=== PATIENT | female | born 1995 | race Caucasian/White ===

== ENCOUNTER 2017-02-19 09:42 | Inpatient (IN) | payer OTHER ==
[2017-02-19] VITALS (8 sets, daily range): BP systolic 95–128; BP diastolic 53–85; PULSE 53–64; RESP 16–20; TEMP 97.7–98; O2SAT 100
[2017-02-19] MEDS ORDERED: OXYTOCIN 10 UNIT/ML AMP ONE (10:14)
--- NOTE | 2017-02-19 10:50 | PD ---
HPI Chief Complaint contractions and ROM Date Seen: Feb 19, 2017 Time Seen: 10:47 Travel History International Travel<30 Days: No Contact w/Intl Traveler<30Days: No Known Affected Area: No History of Present Illness HPI 22-year-old who is at 39 weeks gestation comes a complaint of rupture membranes and contractions. Patient's noted here in triage to have repetitive variable decelerations down to the 60s with a baseline of 140. Patient states that she was breech in the clinic one week ago. Para: 1 : 2 History Past Medical History Medical History: Denies Significant Hx Obstetric History Obstetric History Spontaneous vaginal delivery 1 Past Surgical History Narrative Surgical Spine stimulator Cholecystectomy Tonsillectomy Family History Family History: Negative Social History Alcohol Use: No Tobacco Use: No Substance Abuse: No Review of Systems Except as stated in HPI: all other systems reviewed are Neg Physical Exam Narrative GENERAL: Well-nourished, well-developed patient. SKIN: Warm and dry. HEAD: Normocephalic and atraumatic. EYES: No scleral icterus. No injection or drainage. ENT: No nasal drainage noted. Mucous membranes pink. Airway patent. NECK: Supple, trachea midline. No JVD. CARDIOVASCULAR: Regular rate and rhythm without murmurs, gallops, or rubs. RESPIRATORY: Breath sounds equal bilaterally. No accessory muscle use. BREASTS: Bilateral exam showed no masses , no retractions, no nipple discharge. ABDOMEN/GI: Abdomen soft, non-tender, bowel sounds present, no rebound, no guarding Gravid to [-40] weeks size Fundal Height: [-] GENITOURINARY: External Genitalia: intact and normal in appearance BUS glands: [Normal-] Cervix: [-] Dilatation: [-Complete] Effacement: [-Complete] Station: [-0] Presentation: [-] Double footling breech with 1 foot and 1 leg in the vagina Membranes: [ruptured] Uterine Contractions: [-Every 3 minutes] FHT's: Category: [-2] Baseline: [-140] Reactive: [Moderate] Variability: [-] Decels: [-] Variable decelerations to 70 for 90 seconds at a time EXTREMITIES: No cyanosis or edema. BACK: Nontender without obvious deformity. No CVA tenderness. NEUROLOGICAL: Awake and alert. Motor and sensory grossly within normal limits. Five out of 5 muscle strength in all muscle groups. Normal speech. Data Data Vital Signs Reviewed: Yes Orders Oxytocin Inj (Pitocin Inj) (02/19/17 10:14) MDM Plan 22-year-old with a double footling breech presentation completely dilated , with a category 2 heart rate tracing and repetitive variable decelerations. Plan emergency section. Dr. Hylton is back in the OR present time I will take the patient back for her section she understands this as well as her spouse. Diagnosis Diagnosis: Primary Impression: 39 weeks gestation of Additional Impressions: Double footling breech presentation Rupture of membranes with clear amniotic fluid Variable heart rate decelerations, delivered Brittany Beauchamp MD Feb 19, 2017 10:50
[2017-02-19] MEDS ORDERED: LACTATED RINGER'S 1000 ML INJ 1,000 ML IV PRN (10:58)
[2017-02-19] MEDS ORDERED: LACTATED RINGER'S 1000 ML INJ 1,000 ML IV SCH ×2 (10:58→16:00)
--- NOTE | 2017-02-19 10:58 | PD.OB.DELI ---
Procedure Note Section Procedure Pre Op Diagnosis: (1) 39 weeks gestation of (2) Variable heart rate decelerations, delivered (3) Double footling breech presentation (4) Rupture of membranes with clear amniotic fluid Post Op Diagnosis: Post Op Diagnosis same Performed by Brittany Beauchamp Procedure: Primary Low Transverse Sec Indication for delivery: Nonreassuring heart tracing, malposition Informed consent obtained: For anesthesia, For procedure Confirmed correct: Patient, Procedure, Site Anesthesia: None (GETA) Urinary catheter: Inserted using sterile technique Sterile preparation: Duraprep (Unable to wait entire 3 mintues for drying due to emergency nature of precedure) Position: Supine Operative Features Skin Incision: Pfannenstiel Uterine Incision: Low transverse w/knife / blunt ext Membranes Ruptured: Previously Presentation: Breech Time of : 10:32 Delivery of infant: Umbilical cord (nuchal cord x 4 noted, ) Infant: Male One Minute : 6 Five Minute : 7 Weight: 3290gms Placenta delivered: Intact Medications: Antibiotics (2gms Ancef given intraop) Estimated blood loss: 500 Procedure tolerated: Well Maternal Condition: Stable Condition: Stable Brittany Beauchamp MD Feb 19, 2017 10:58
[2017-02-19] MEDS ORDERED: LIDOCAINE HCL 1% 50 ML VIAL INFIL PRN (11:00)
[2017-02-19] MEDS ORDERED: ONDANSETRON HCL 4 MG/2 ML VIAL IV PUSH PRN (11:00)
[2017-02-19] MEDS ORDERED: OXYTOCIN 30 UNITS-500ML PREMIX 500 ML IV ONE ×2 (11:00)
[2017-02-19] MEDS ORDERED: MINERAL OIL 10 ML VIAL TOPICAL PRN (11:00)
[2017-02-19] MEDS ORDERED: CITRIC ACID-SODIUM CITRATE LIQ 30 ML UDC PO SCH (11:00)
[2017-02-19] MEDS ORDERED: LIDOCAINE HCL 1% 50 ML VIAL I-DERMAL PRN (11:00)
[2017-02-19] MEDS ORDERED: SODIUM CHLORID 0.9% 500 ML INJ 500 ML IV PRN (11:00)
[2017-02-19] MEDS ORDERED: SIMETHICONE 80 MG CHEWABLE TAB PO PRN (11:00)
[2017-02-19] MEDS ORDERED: oxyCODONE/ACETAMINOPHEN 5 MG/325 MG TAB PO PRN (11:00)
[2017-02-19 11:09] LABS: BLOOD, URINE NEG (NEG); COMMENT (UR) CULT NOT INDICATED; CULTURE IF INDICATED CULT NOT INDICATED; GLUCOSE,URINE NEG (NEG); HYALINE CAST, URINE 1 /lpf (RARE); KETONE, URINE NEG (NEG); MUCUS URINE FEW /lpf (OCC); NITRITE,URINE NEG (NEG); PH, URINE 6.5 (5.0-8.5); SQUAMOUS EPITHELIAL CELL URINE 1 /hpf (0-5); URINE COLOR YELLOW (YELLW/STRAW)
[2017-02-19 11:09] LABS: BASOPHIL % 0.5 % (0.0-2.0); EOSINOPHIL # 0.1 TH/MM3 (0-0.4); EOSINOPHIL % 1.3 % (0.0-4.0); HEMO FLAGS DIFF FINAL; LYMPH % 23.7 % (9.0-44.0); LYMPHOCYTE # 2.1 TH/MM3 (1.0-4.8); MEAN CELL VOLUME 90.9 FL (80.0-100.0); MEAN CORPUSCULAR HEMOGLOBIN 30.8 PG (27.0-34.0); MEAN CORPUSCULAR HGB CONC 33.8 % (32.0-36.0); MONO % 6.3 % (0.0-8.0); NEUT % 68.2 % (16.0-70.0); PLATELET COUNT 139 TH/MM3 (150-450); RED BLOOD COUNT 3.85 MIL/MM3 (4.00-5.30); RED CELL DISTRIBUTION WIDTH 12.6 % (11.6-17.2); WHITE BLOOD COUNT 8.8 TH/MM3 (4.0-11.0)
[2017-02-19] MEDS ORDERED: HYDROmorphone HCL PF 2 MG/ML VIAL ONE (11:10)
[2017-02-19] MEDS ORDERED: diphenhydrAMINE HCL 25 MG CAP PO PRN (11:15)
[2017-02-19] MEDS ORDERED: NALOXONE HCL 0.4 MG/ML AMP IV PRN (11:15)
[2017-02-19] MEDS ORDERED: LACTATED RINGER'S 1000 ML INJ 1,000 ML IV ONE ×2 (11:16)
[2017-02-19] MEDS ORDERED: MIDAZOLAM HCL 2 MG/2 ML VIAL ONE (11:17)
[2017-02-19] MEDS ORDERED: fentaNYL CITRATE 250 MCG/5 ML AMP ONE (11:17)
[2017-02-19] MEDS ORDERED: SODIUM CHLOR 0.9% 1000 ML INJ 1,000 ML IV PRN (11:18)
[2017-02-19] MEDS ORDERED: ACETAMINOPHEN 1000 MG/100 ML VIAL IV ONE ×2 (11:25→14:45)
[2017-02-19] MEDS ORDERED: HYDROmorphone HCL PCA 6 MG/30 ML IV ONE (11:31)
[2017-02-19] MEDS: HYDROmorphone HCL PCA 6 MG/30 ML IV SCH ×3 (11:44→23:45)
[2017-02-19] MEDS ORDERED: KETOROLAC TROMETHAMINE 30 MG/ML (IVP) VIAL ONE (11:50)
[2017-02-19] MEDS ORDERED: OXYTOCIN 30 UNITS-500ML PREMIX 500 ML ONE (11:58)
[2017-02-19] MEDS: PCA - TOTAL MG DILAUDID DELIVERED PER SHIFT OTHER SCH (14:00)
[2017-02-19] MEDS ORDERED: KETOROLAC TROMETHAMINE 30 MG/ML (IVP) VIAL IM ONE (14:45)
[2017-02-19 18:43] LABS: RAPID PLASMA REAGIN SCREEN NON-REACTIVE (NON-REACTVE)
[2017-02-19] MEDS ORDERED: OXYTOCIN 30 UNITS-500ML PREMIX 500 ML IV PRN (21:00)
[2017-02-19] MEDS ORDERED: SODIUM CHLORIDE 0.9% FLUSH 10 ML FLUSH IV FLUSH SCH (21:00)
[2017-02-20] VITALS (7 sets, daily range): BP systolic 99–119; BP diastolic 60–68; PULSE 68–74; RESP 16–20; TEMP 97.8–98.8
--- NOTE | 2017-02-20 02:19 | HHI.OB ---
Subjective Post Operative Day: 1 Remarks Pt crying stating pain control is not adequate. Pt has not been and still not forthcoming about her drug use. She denied any drug use at her 2 visits during . Now states she was on oxycodone 10 alva TID, until she "found out I was " which was in third trimester, and "again at the end." Objective Vitals/I&O Vital Signs Date Time Temp Pulse Resp B/P Pulse Ox O2 Delivery O2 Flow Rate FiO2 02/20/17 00:30 98.6 68 18 111/64 02/19/17 23:45 20 02/19/17 20:00 97.8 60 20 118/64 02/19/17 17:58 18 02/19/17 14:00 18 02/19/17 13:50 64 16 128/81 02/19/17 13:50 98.0 02/19/17 12:26 97.7 02/19/17 12:15 123/83 02/19/17 12:15 61 16 100 02/19/17 12:05 59 16 128/79 02/19/17 12:05 100 02/19/17 11:49 16 02/19/17 11:49 57 18 128/85 100 02/19/17 11:44 18 02/19/17 11:20 53 18 100 02/19/17 11:19 95/53 Result Diagram: 02/19/17 1005 Objective Remarks GENERAL: Well-nourished, well-developed patient. CARDIOVASCULAR: Regular rate and rhythm without murmurs, gallops, or rubs. RESPIRATORY: Breath sounds equal bilaterally. No accessory muscle use. ABDOMEN/GI: Abdomen soft, non-tender, bowel sounds present. Incision:dressing Clean, dry and intact. Fundus: Firm, non-tender at umbilicus. GENITOURINARY: Light to moderate bleeding. EXTREMITIES: No cyanosis or edema, non-tender, without signs of DVT. Medications and IVs Current Medications Medications (Trade) Dose Ordered Sig/Juma Route Start Time Stop Time Status Last Admin Lactated Ringer's 1,000 ml @ 125 mls/hr Q8H IV 02/19/17 10:58 Lactated Ringer's 1,000 ml @ 3,000 mls/hr Q20M PRN IV 02/19/17 10:58 (NS 1000 ml Inj) 1,000 ml @ 100 mls/hr Q10H PRN IV 02/19/17 11:18 (fentaNYL INJ) 50 mcg Q1H PRN IV PUSH 02/19/17 11:00 (fentaNYL INJ) 100 mcg Q1H PRN IV PUSH 02/19/17 11:00 Mineral Oil 10 ml 10 ml UNSCH PRN TOPICAL 02/19/17 11:00 (Lr 1000 ml Inj) 1,000 ml @ 100 mls/hr Q10H IV 02/19/17 16:00 02/20/17 11:59 (NS Flush) 2 ml BID IV FLUSH 02/19/17 21:00 (NS Flush) 2 ml UNSCH PRN IV FLUSH 02/19/17 11:00 (Mylicon Chew) 80 mg QID PRN PO 02/19/17 11:00 (Percocet 5-325 Mg) 1 tab Q4H PRN PO 02/19/17 11:00 (Percocet 5-325 Mg) 2 tab Q4H PRN PO 02/19/17 11:00 (Yesika-Colace) 2 tab Q12H PRN PO 02/19/17 11:00 (M-M-R Ii Inj) 0.5 ml ONCE ONCE SQ 02/20/17 16:00 02/20/17 16:01 (Boostrix Inj) 0.5 ml ONCE ONCE IM 02/20/17 16:00 02/20/17 16:01 (Zofran Inj) 4 mg Q6H PRN IV PUSH 02/19/17 11:00 (Narcan Inj) 0.4 mg UNSCH PRN IV 02/19/17 11:15 (Benadryl) 25 mg Q6H PRN PO 02/19/17 11:15 (Dilaudid DRAWING FRAME TENDER Inj) 6 mg UNSCH IV 02/19/17 11:15 02/19/17 23:45 DRAWING FRAME TENDER Dosage Infused (Pha) 1 Q8HR OTHER 02/19/17 14:00 02/19/17 14:00 Assessment/Plan Problem List: (1) delivery delivered (2) Limited care Assessment and Plan POD 1 s.p stat cd under general for footling breech uds + opiates and MJ. case management consulted and DCF involved. Will increase percocet to 7.5mg bid and give toradol q 24 hours scheduled. Will hold ibuprofen at this time. Anette Hylton MD Feb 20, 2017 02:18
[2017-02-20] MEDS: HYDROmorphone HCL PCA 6 MG/30 ML IV SCH (03:08)
[2017-02-20 03:18] LABS: AMPHETAMINE, URINE NEG (NEG); BARBITURATES, URINE NEG (NEG); COCAINE, URINE NEG (NEG)
[2017-02-20] MEDS: oxyCODONE/ACETAMINOPHEN 5 MG/325 MG TAB PO PRN ×3 (03:58→12:25)
[2017-02-20] MEDS: IBUPROFEN 600 MG TAB PO PRN ×2 (04:05→10:28)
[2017-02-20 05:58] LABS: AUTOMATED NEUTROPHIL # 10.3 TH/MM3 (1.8-7.7); BASOPHIL % 0.1 % (0.0-2.0); EOSINOPHIL % 0.3 % (0.0-4.0); HEMATOCRIT 26.3 % (35.0-46.0); HEMO FLAGS DIFF FINAL; LYMPH % 13.5 % (9.0-44.0); LYMPHOCYTE # 1.7 TH/MM3 (1.0-4.8); MEAN CELL VOLUME 91.5 FL (80.0-100.0); MEAN CORPUSCULAR HEMOGLOBIN 31.4 PG (27.0-34.0); MEAN CORPUSCULAR HGB CONC 34.3 % (32.0-36.0); MONO % 5.7 % (0.0-8.0); NEUT % 80.4 % (16.0-70.0); PLATELET COUNT 105 TH/MM3 (150-450); RED BLOOD COUNT 2.88 MIL/MM3 (4.00-5.30); RED CELL DISTRIBUTION WIDTH 12.6 % (11.6-17.2); WHITE BLOOD COUNT 12.8 TH/MM3 (4.0-11.0)
[2017-02-20] MEDS: PCA - TOTAL MG DILAUDID DELIVERED PER SHIFT OTHER SCH (07:15)
[2017-02-20] MEDS: DOCUSATE SODIUM 50 MG/SENNA 8.6 MG TAB PO PRN (08:32)
[2017-02-20] MEDS ORDERED: oxyCODONE/ACETAMINOPHEN 7.5 MG/325 MG TAB PO PRN (13:15)
[2017-02-20] MEDS ORDERED: DIPHTH/TETANUS/ACEL PERTUSSIS (BOOSTER) 0.5 ML VIAL/PFS IM ONE (16:00)
[2017-02-20] MEDS ORDERED: MEASLES, MUMPS, RUBELLA VACCINE 0.5 ML VIAL SQ ONE (16:00)
[2017-02-20] MEDS: SODIUM CHLORIDE 0.9% FLUSH 10 ML FLUSH IV FLUSH PRN ×2 (16:30→22:35)
[2017-02-20] MEDS: oxyCODONE/ACETAMINOPHEN 7.5 MG/325 MG TAB PO PRN ×2 (16:30→20:30)
[2017-02-20] MEDS ORDERED: KETOROLAC TROMETHAMINE 30 MG/ML (IVP) VIAL IV PUSH SCH ×2 (18:00→22:00)
[2017-02-21] MEDS: oxyCODONE/ACETAMINOPHEN 7.5 MG/325 MG TAB PO PRN ×4 (00:25→13:15)
[2017-02-21] MEDS: KETOROLAC TROMETHAMINE 30 MG/ML (IVP) VIAL IM SCH ×3 (04:50→11:00)
[2017-02-21 08:30] VITALS: BP 101/61; PULSE 67; RESP 16; TEMP 98.8
[2017-02-21] MEDS: IBUPROFEN 600 MG TAB PO PRN (08:36)
[2017-02-21] MEDS: DOCUSATE SODIUM 50 MG/SENNA 8.6 MG TAB PO PRN (08:36)
--- NOTE | 2017-02-21 11:13 | HHI.OB ---
Subjective Post Operative Day: 2 Remarks pain improved, voiding, + flatus. Desires to be d/c. Case management has already spoken with her. Baby in nicu for GUNJAN. She is pumping. Objective Vitals/I&O Vital Signs Date Time Temp Pulse Resp B/P Pulse Ox O2 Delivery O2 Flow Rate FiO2 02/21/17 08:30 98.8 67 16 101/61 02/20/17 20:30 119/68 02/20/17 20:30 98.8 71 16 02/20/17 16:30 18 02/20/17 14:55 18 02/20/17 12:25 20 Result Diagram: 02/20/17 0525 Objective Remarks GENERAL: Well-nourished, well-developed patient. CARDIOVASCULAR: Regular rate and rhythm without murmurs, gallops, or rubs. RESPIRATORY: Breath sounds equal bilaterally. No accessory muscle use. ABDOMEN/GI: Abdomen soft, non-tender, bowel sounds present. Incision Clean, dry and intact. Fundus: Firm, non-tender at umbilicus. GENITOURINARY: Light to moderate bleeding. EXTREMITIES: No cyanosis or edema, non-tender, without signs of DVT. Medications and IVs Current Medications Medications (Trade) Dose Ordered Sig/Juma Route Start Time Stop Time Status Last Admin (Lr 1000 ml Inj) 1,000 ml @ 125 mls/hr Q8H IV 02/19/17 10:58 02/20/17 03:04 (Muri-Lube Oil) 10 ml UNSCH PRN TOPICAL 02/19/17 11:00 (NS Flush) 2 ml UNSCH PRN IV FLUSH 02/19/17 11:00 02/20/17 22:35 (Mylicon Chew) 80 mg QID PRN PO 02/19/17 11:00 (Yesika-Colace) 2 tab Q12H PRN PO 02/19/17 11:00 02/21/17 08:36 (Zofran Inj) 4 mg Q6H PRN IV PUSH 02/19/17 11:00 (Narcan Inj) 0.4 mg UNSCH PRN IV 02/19/17 11:15 (Benadryl) 25 mg Q6H PRN PO 02/19/17 11:15 (Motrin) 600 mg Q6H PRN PO 7/22/17 04:00 02/21/17 08:36 (Percocet 7.5-325 Mg) 2 tab Q4H PRN PO 02/20/17 13:15 02/21/17 08:36 (Percocet 7.5-325 Mg) 1 tab Q4H PRN PO 02/20/17 13:15 (Toradol Inj) 30 mg Q6H IM 02/21/17 05:00 02/25/17 11:01 Assessment/Plan Problem List: (1) delivery delivered (2) Limited care Assessment and Plan POD 2 s.p stat cd under general for footling breech uds + opiates and MJ. case management consulted and DCF involved. Pain medication changed yesterday to percocet 7.5mg bid and toradol q 24 hours scheduled with improvement in pain control. She desires to be discharged today. OFfered to stay extra night to be with but she would prefer to be home as she would be more comfortable and able to rest. Discharge Planning home today Anette Hylton MD Feb 21, 2017 11:13
[2017-02-21] MEDS ORDERED: IBUP-232 PO (14:06)
[2017-02-21] MEDS ORDERED: OXYC1TAB35 PO (14:06)
[2017-02-21] MEDS ORDERED: Simethicone Chew PO (14:06)
--- NOTE | 2017-02-21 14:08 | HHI.DCPOC ---
Discharge Care Plan Diagnosis: (1) Limited care (2) delivery delivered (3) Opiate abuse, continuous Your Health Problems Are: delivery Report Symptoms to Your Doctor -Temperature above 100.5 degrees -Redness, of incision or excessive or foul smelling drainage -Unusual pain or calf pain -Increased vaginal bleeding -Painful or difficulty urinating -Feelings of extreme sadness or anxiety after 2 weeks Goals to Promote Your Health * To prevent worsening of your condition and complications * To maintain your health at the optimal level Directions to Meet Your Goals Take your medications as prescribed Follow your dietary instruction Follow activity as directed Ensure plenty of rest for recovery Drink fluids for hydration Keep your appointments as scheduled Take your immunizations and boosters as scheduled If your symptoms worsen call your PCP, if no PCP go to Urgent Care Center or Emergency Room Smoking is Dangerous to Your Health. Avoid second hand smoke Call the 24-hour crisis hotline for domestic abuse at Anette Hylton MD Feb 21, 2017 14:08
--- NOTE | 2017-02-21 16:56 | MP ---
cc: SUMMER CABRERA M.D. DATE OF SURGERY 02/19/2017 PREOPERATIVE DIAGNOSES 1. 39 weeks gestation. 2. Variable heart rate decelerations with a category II heart rate tracing. 3. Double footling breech presentation with a completely dilated cervix. 4. Rupture of membranes spontaneously. POSTOPERATIVE DIAGNOSES 1. 39 weeks gestation. 2. Variable heart rate decelerations with a category II heart rate tracing. 3. Double footling breech presentation with a completely dilated cervix. 4. Rupture of membranes spontaneously. 5. Nuchal cord times four. PROCEDURE Primary low transverse section. ESTIMATED BLOOD LOSS 600 mL ANESTHESIA General endotracheal. MEDICATIONS None. Ancef 2 grams was given intraoperatively as this was an emergency section. DRAINS Howell to gravity. SURGEON Summer Cabrera MD CIRCUS TRAINER Akiko Spencer. Position was supine. FINDINGS 1. Normal uterus, tubes and ovaries. 2. Clear amniotic fluid. 3. Patient with a double footling breach, one foot is in the vagina. A knee is in the vagina and this was pulled out of the vagina, knees were extended and delivered and using counterclockwise and clockwise traction the upper extremities were delivered. 4. Nuchal cord times four was reduced prior to delivery of the head. The head was flexed forward before it was delivered and then handed off to the resuscitation team for subsequent care. 5. The Apgars were 6 and 7. Placenta was delivered intact spontaneously. Endometrial cavity was curetted with moist noted at laparotomy sponge. The incision was repaired using running, locking #1 chromic suture with good hemostasis at closure and a second layer of imbricating suture was placed. Gutters were rendered free of blood and clot material. The fascia was closed with #1 PDS. The subcuticular tissue was made hemostatic with a Bovie and the skin was closed with a Monocryl. The patient tolerated the procedure well. She was taken back to the Recovery Room in good condition. MD BARBRA Rinaldi/IVETTE /11:15 AM /4:39 PM
== END 2017-02-21 16:40 | disposition home or self-care (01) | DRG 765 ==
LOC: HOBED 09:42 → H2EB 10:09 → H1EA 13:33
PROVIDERS: ADMIT Obstetrics & Gynecology; ATTEND Obstetrics & Gynecology
PROC: 10D00Z1 Extraction of Products of Conception, Low, Open Approach (ICD-10-PCS; principal; 2017-02-19)
DX: O76 Abnormality in fetal heart rate and rhythm complicating labor and delivery (principal); O99.324 Drug use complicating childbirth; O32.8XX0 Maternal care for other malpresentation of fetus, not applicable or unspecified; F11.10 Opioid abuse, uncomplicated; O69.81X0 Labor and delivery complicated by cord around neck, without compression, not applicable or unspecified; F12.10 Cannabis abuse, uncomplicated; Z37.0 Single live birth; Z3A.39 39 weeks gestation of pregnancy
CPT/HCPCS: 80307; 81001; 85025; 86592; 86803; 86900; 86901; 87340; 87535; 90715; G0481; J0131; J1170; J1885; J2250; J2590; J3010; J7120